=== PATIENT | female | born 1940 | race Caucasian/White ===

== ENCOUNTER 2018-01-13 11:08 | Observation (INO) | payer MEDICARE ==
[~2018-01-13] VITALS: Ht 162.6 cm; Wt 62.7 kg
[2018-01-13] MEDS ORDERED: CEFAZOLIN PMX 1GM/50ML 50 ML IVPB ONE (12:00)
[2018-01-13] MEDS ORDERED: CARV3.1212 PO (12:02)
[2018-01-13] MEDS ORDERED: TORS20TA2 PO (12:02)
[2018-01-13] MEDS ORDERED: ATOR40TA78 PO (12:02)
[2018-01-13] MEDS ORDERED: WARF5TAB7 PO (12:02)
[2018-01-13] MEDS ORDERED: LEVO200T5 PO (12:02)
[2018-01-13] MEDS ORDERED: ASPI-621 PO (12:02)
[2018-01-13] MEDS ORDERED: WARF6TAB7 PO (12:02)
[2018-01-13] MEDS ORDERED: LISI-167 PO (12:02)
[2018-01-13] MEDS ORDERED: SPIR25TA3 PO (12:02)
[2018-01-13 12:13] VITALS: BP 131/86
[2018-01-13] MEDS ORDERED: CETI10TA24 PO (12:13)
[2018-01-13 12:37] LABS: INTERNATIONAL NORMALIZED RATIO 2.99 (0.93-1.1); PROTHROMBIN TIME 30.1 Seconds (9.6-11.5)
[2018-01-13] MEDS ORDERED: MIDAZOLAM 1 MG/ML, 2ML ONE ×2 (13:27→13:59)
[2018-01-13] MEDS ORDERED: CEFAZOLIN PMX 1GM/50ML 50 ML ONE (13:28)
[2018-01-13] MEDS ORDERED: FENTANYL PF 100 MCG/2ML ONE (13:28)
[2018-01-13] MEDS ORDERED: CEFAZOLIN 1,000 MG ONE (13:28)
[2018-01-13] MEDS ORDERED: LIDOCAINE 2%, 20ML ONE (13:28)
[2018-01-13] MEDS ORDERED: DIPHENHYDRAMINE 50 MG/ML, 1ML ONE (13:53)
[2018-01-13] MEDS ORDERED: ONDANSETRON 2MG/ML, 2ML IV PRN (15:00)
[2018-01-13] MEDS ORDERED: ZOLPIDEM 5MG TABLET PO PRN (15:00)
[2018-01-13] MEDS ORDERED: HYDROcodone/APAP 5/325 TABLET ONE (15:27)
[2018-01-13] MEDS: HYDROcodone/APAP 5/325 TABLET PO PRN ×2 (15:28→20:16)
[2018-01-13] MEDS: PLEASE ENTER ALLERGIES MC SCH (16:30)
[2018-01-13] MEDS: SODIUM CHLORIDE 0.9% 1,000 ML IV SCH ×2 (16:46→19:40)
[2018-01-13 17:09] VITALS: BP 112/63
[2018-01-13 19:39] VITALS: BP 145/82
[2018-01-13] MEDS ORDERED: ATORVASTATIN 40 MG TABLET PO SCH (21:00)
[2018-01-13] MEDS ORDERED: LISINOPRIL 10 MG TABLET PO SCH (21:00)
[2018-01-13] MEDS: CEFAZOLIN PMX 1GM/50ML 50 ML IVPB SCH (21:16)
[2018-01-13] MEDS: CARVEDILOL 3.125 MG TABLET PO SCH (21:18)
[2018-01-13] MEDS: SODIUM CHLORIDE FLUSH 10ML SYR IVF SCH (21:19)
[2018-01-14] MEDS: HYDROcodone/APAP 5/325 TABLET PO PRN ×3 (00:17→09:06)
[2018-01-14] MEDS: PLEASE ENTER ALLERGIES MC SCH ×2 (00:30→08:03)
[2018-01-14 02:03] VITALS: BP 153/88
[2018-01-14] MEDS: SODIUM CHLORIDE 0.9% 1,000 ML IV SCH (03:40)
[2018-01-14] MEDS ORDERED: LEVOTHYROXINE 200 MCG TABLET PO SCH ×2 (06:00→09:00)
[2018-01-14] MEDS: CEFAZOLIN PMX 1GM/50ML 50 ML IVPB SCH (06:14)
[2018-01-14 08:28] VITALS: BP 130/81
[2018-01-14] MEDS ORDERED: CETIRIZINE 10 MG TABLET PO SCH (09:00)
[2018-01-14] MEDS ORDERED: TORSEMIDE 20 MG TABLET PO SCH (09:00)
[2018-01-14] MEDS ORDERED: ASPIRIN 81 MG TABLET EC PO SCH (09:00)
[2018-01-14] MEDS ORDERED: SPIRONOLACTONE 25 MG TABLET PO SCH (09:00)
[2018-01-14] MEDS: CARVEDILOL 3.125 MG TABLET PO SCH (09:06)
[2018-01-14] MEDS: SODIUM CHLORIDE FLUSH 10ML SYR IVF SCH (09:11)
[2018-01-14] MEDS ORDERED: HYDR-3240 PO (10:01)
== END 2018-01-14 13:18 | disposition home or self-care (01) ==
LOC: CACL 11:08 → ORIP 14:33 → 5SO 16:18 → DCLOUNGE 01-14 13:00
PROVIDERS: ADMIT Internal Medicine Cardiovascular Disease; ATTEND Internal Medicine Cardiovascular Disease
DX: I25.5 Ischemic cardiomyopathy (principal); I51.9 Heart disease, unspecified; E78.5 Hyperlipidemia, unspecified; Z86.73 Personal history of transient ischemic attack (TIA), and cerebral infarction without residual deficits
CPT/HCPCS: 33249; 36415; 71045; 85610; 96365; 99156; 99157; C1722; C1892; C1895; G0378; J0690; J1200; J2250; J3010; J3490